=== PATIENT | male | born 1945 | race Caucasian/White ===

== ENCOUNTER 2016-09-03 02:01 | Inpatient (IN) | payer OTHER, MEDICAID ==
[~2016-09-03] VITALS: Ht 177.8 cm; Wt 81.2 kg
[2016-09-03] MEDS ORDERED: SODIUM CHLORIDE 0.9% 1,000 ML IV ONE (02:23)
[2016-09-03] MEDS ORDERED: ONDANSETRON HCL 4MG/2ML VIAL IV STA (02:23)
[2016-09-03] MEDS ORDERED: MORPHINE SULFATE 4 MG/ML CPJ (NOT FOR IM USE) IV STA (02:23)
[2016-09-03 02:42] LABS: HEMATOCRIT. 35.5 % (42.0-52.0); HEMOGLOBIN. 11.5 g/dL (14.0-18.0); MEAN CORPUSCULAR HEMOGLOBIN 29.4 pg (28.0-32.0); MEAN CORPUSCULAR HGB CONC 32.4 g/dL (31.0-37.0); MEAN CORPUSCULAR VOLUME 90.6 fL (80.0-94.0); MEAN PLATELET VOLUME 7.4 fl (7.4-10.4); PLATELET 351 x1000/uL (130-400); RED BLOOD CELL COUNT 3.91 mill/uL (4.7-6.1); RED CELL DISTRIBUTION WIDTH 16.4 % (11.6-14.6); WHITE BLOOD COUNT 17.4 x1000/uL (4.5-11.0)
[2016-09-03 02:43] LABS: DIFFERENTIAL COMMENT 1
[2016-09-03 02:49] LABS: CHLORIDE 103 mEq/L (98-107); INDEX HEMOLYSI 1 (1-3); INDEX ICTERIC 1 (1-4); INDEX LIPEMIC 1 (1-3)
[2016-09-03 02:50] LABS: INR 1.3; PARTIAL THROMBOPLASTIN TIME 35.7 sec (24.0-34.0); PROTHROMBIN TIME 13.1 sec
[2016-09-03 02:57] LABS: ALANINE AMINOTRANSFERASE 14 IU/L (13-61); ANION GAP 16; CALCIUM 8.6 mg/dL (8.5-10.1); CARBON DIOXIDE 24 mEq/L (21-32); UREA NITROGEN BLOOD 12 mg/dL (7-21); eGFR > 60 mL/min (>60)
[2016-09-03 03:51] LABS: LIPASE 10296 IU/L (73-393)
[2016-09-03 05:08] LABS: CLARITY URINE CLEAR (CLEAR); COLOR URINE YELLOW (YELLOW); GLUCOSE URINE NEGATIVE (NEGATIVE); KETONES URINE NEGATIVE (NEGATIVE); LEUKOCYTE ESTERASE URINE NEGATIVE (NEGATIVE); NITRITE URINE NEGATIVE (NEGATIVE); OCCULT BLOOD URINE NEGATIVE (NEGATIVE); PH URINE 6.5 (4.5-8.0); PROTEIN URINE NEGATIVE (NEGATIVE); SPECIFIC GRAVITY URINE 1.024 (1.005-1.030)
[2016-09-03] MEDS ORDERED: ENOXAPARIN 80MG/0.8ML SYR SUBCUT ONE (05:30)
[2016-09-03] MEDS ORDERED: IOHEXOL-300 100 ML BOTTLE ONE (06:00)
[2016-09-03] MEDS ORDERED: SODIUM CHLORIDE 0.9% 10ML VIAL ONE (06:00)
[2016-09-03 07:47] LABS: PLATELET ESTIMATE NORMAL
[2016-09-03 08:45] VITALS: BP 137/100
[2016-09-03 09:30] VITALS: BP 137/101
[2016-09-03] MEDS ORDERED: ATOR40TA70 PO (10:30)
[2016-09-03] MEDS ORDERED: GUAI480S11 PO (10:43)
[2016-09-03] MEDS ORDERED: IPRA0.2S51 NEB (10:43)
[2016-09-03] MEDS ORDERED: CYAN10009 PO (10:43)
[2016-09-03] MEDS ORDERED: ONDA4TAB5 PO (10:43)
[2016-09-03] MEDS ORDERED: SENN1TAB35 PO (10:43)
[2016-09-03] MEDS ORDERED: MULT-1146 PO (10:43)
[2016-09-03] MEDS ORDERED: RIVA20TA PO (10:43)
[2016-09-03] MEDS ORDERED: GABA300C PO (10:43)
[2016-09-03] MEDS ORDERED: LISI10TA5 PO (10:43)
[2016-09-03] MEDS ORDERED: POLY17PO3 PO (10:43)
[2016-09-03] MEDS ORDERED: PROT40 PO (10:43)
[2016-09-03] MEDS ORDERED: FOLI-43 PO (10:43)
[2016-09-03] MEDS ORDERED: LACT10SO6 PO (10:43)
[2016-09-03] MEDS ORDERED: DILT180C69 PO (10:43)
[2016-09-03] MEDS ORDERED: ACET-3161 PO (10:44)
[2016-09-03] MEDS ORDERED: ONDANSETRON HCL 4MG/2ML VIAL IV PRN ×2 (11:00→11:15)
[2016-09-03] MEDS: MORPHINE SULFATE 2 MG/ML CPJ (NOT FOR IM USE) IV PRN ×3 (11:07→21:24)
[2016-09-03] MEDS ORDERED: IPRATROPIUM/ALBUTEROL 0.5-3(2.5)MG/3ML NEB INH PRN (11:15)
[2016-09-03] MEDS ORDERED: ACETAMINOPHEN 325MG TABLET PO PRN (11:15)
[2016-09-03] MEDS ORDERED: CLONIDINE 0.1MG TABLET PO PRN (11:15)
[2016-09-03] MEDS ORDERED: DIPHENHYDRAMINE 50MG/ML VIAL IV PRN (11:15)
[2016-09-03 12:00] VITALS: BP 125/85
[2016-09-03] MEDS ORDERED: SENNOSIDES/DOCUSATE SOD 8.6/50MG TABLET PO PRN (12:45)
[2016-09-03] MEDS ORDERED: ONDANSETRON HCL 4MG TABLET PO PRN (12:45)
[2016-09-03] MEDS ORDERED: POLYETHYLENE GLYCOL 3350 (17GM) 1 DOSE PACK PO PRN (12:45)
[2016-09-03] MEDS ORDERED: ACETAMINOPHEN WITH CODEINE 300/30MG TABLET PO PRN (12:45)
[2016-09-03] MEDS ORDERED: IPRATROPIUM BROMIDE (0.02%) 0.5MG/2.5ML NEB HHN PRN (12:45)
[2016-09-03] MEDS: NICOTINE 7MG PATCH TD SCH ×2 (14:00→14:09)
[2016-09-03] MEDS ORDERED: DILTIAZEM HCL 180MG CAPSULE CD 24HR PO SCH (14:00)
[2016-09-03] MEDS: CYANOCOBALAMIN 1000MCG TABLET PO SCH (14:01)
[2016-09-03] MEDS: GABAPENTIN 300MG CAPSULE PO SCH ×2 (14:01→21:23)
[2016-09-03] MEDS: PANTOPRAZOLE SODIUM 40 MG/VIAL IV SCH (14:01)
[2016-09-03] MEDS: SODIUM CHLORIDE 0.9% 1,000 ML IV SCH (14:01)
[2016-09-03] MEDS: LISINOPRIL 10MG TABLET PO SCH (14:02)
[2016-09-03] MEDS: FOLIC ACID 1MG TABLET PO SCH (14:02)
[2016-09-03 16:00] VITALS: BP 122/92
[2016-09-03 16:47] LABS: *AMPHETAMINES SCREEN URINE NEGATIVE (NEGATIVE); *BARBITURATES SCREEN URINE NEGATIVE (NEGATIVE); *BENZODIAZEPINES SCREEN URINE NEGATIVE (NEGATIVE); *COCAINE SCREEN URINE NEGATIVE (NEGATIVE); CANNABINOID URINE SCREEN NEGATIVE (NEGATIVE); ECSTASY MDMA SCREEN URINE NEGATIVE (NEGATIVE); METHADONE URINE SCREEN NEGATIVE (NEGATIVE); OPIATES URINE SCREEN PRESUMTIVE POSITIVE (NEGATIVE); PHENCYCLIDINE URINE SCREEN NEGATIVE (NEGATIVE)
[2016-09-03] MEDS: RIVAROXABAN 20 MG TABLET PO SCH (17:08)
[2016-09-03] MEDS: LACTULOSE 20G/30ML UDC PO SCH (17:08)
[2016-09-03 20:00] VITALS: BP 131/91
[2016-09-03] MEDS: ATORVASTATIN CALCIUM 40MG TABLET PO SCH (21:23)
[2016-09-04] VITALS: BP 126/93
[2016-09-04] MEDS: GUAIFENESIN-DM 200MG-20MG/10ML UDC PO PRN ×2 (01:47→17:25)
[2016-09-04 04:00] VITALS: BP 137/95
[2016-09-04] MEDS: DILTIAZEM HCL 60MG TABLET PO SCH ×3 (06:19→21:07)
[2016-09-04] MEDS: GABAPENTIN 300MG CAPSULE PO SCH ×3 (06:19→21:06)
[2016-09-04] MEDS: SODIUM CHLORIDE 0.9% 1,000 ML IV SCH ×3 (06:20→21:08)
[2016-09-04 07:00] LABS: HEMATOCRIT. 38.9 % (42.0-52.0); HEMOGLOBIN. 12.8 g/dL (14.0-18.0); MEAN CORPUSCULAR HEMOGLOBIN 29.6 pg (28.0-32.0); MEAN CORPUSCULAR HGB CONC 32.9 g/dL (31.0-37.0); MEAN CORPUSCULAR VOLUME 90.1 fL (80.0-94.0); PLATELET 358 x1000/uL (130-400); RED BLOOD CELL COUNT 4.32 mill/uL (4.7-6.1); RED CELL DISTRIBUTION WIDTH 16.2 % (11.6-14.6); WHITE BLOOD COUNT 26.2 x1000/uL (4.5-11.0)
[2016-09-04 07:54] LABS: DIFFERENTIAL COMMENT 1
[2016-09-04 07:57] LABS: ALANINE AMINOTRANSFERASE 11 IU/L (13-61); ALBUMIN 2.6 g/dL (3.4-5.0); ANION GAP 13; CALCIUM 8.9 mg/dL (8.5-10.1); CARBON DIOXIDE 28 mEq/L (21-32); CHLORIDE 104 mEq/L (98-107); HDL CHOLESTEROL 69 mg/dL (40-59); INDEX HEMOLYSI 1 (1-3); INDEX ICTERIC 1 (1-4); INDEX LIPEMIC 1 (1-3); LDL CHOLESTEROL 33 mg/dL (5-100); MAGNESIUM 1.8 mg/dL (1.8-2.4); TRIGLYCERIDE 39 mg/dL (0-150); UREA NITROGEN BLOOD 9 mg/dL (7-21); eGFR > 60 mL/min (>60)
[2016-09-04 08:00] LABS: AMYLASE 787 IU/L (25-115); THYROID STIMULATING HORMONE 0.47 uIU/mL (0.36-3.74)
[2016-09-04 08:09] VITALS: BP 143/97
[2016-09-04 08:11] LABS: LIPASE 1670 IU/L (73-393)
[2016-09-04] MEDS: FOLIC ACID 1MG TABLET PO SCH (08:42)
[2016-09-04] MEDS: PANTOPRAZOLE SODIUM 40 MG/VIAL IV SCH (08:42)
[2016-09-04] MEDS: LACTULOSE 20G/30ML UDC PO SCH ×2 (08:42→16:54)
[2016-09-04] MEDS: LISINOPRIL 10MG TABLET PO SCH (08:42)
[2016-09-04] MEDS: MULTIVITAMINS,THER W-MINERALS TABLET PO SCH (08:42)
[2016-09-04] MEDS: CYANOCOBALAMIN 1000MCG TABLET PO SCH (08:45)
[2016-09-04] MEDS: NICOTINE 7MG PATCH TD SCH (08:46)
[2016-09-04] MEDS ORDERED: PANTOPRAZOLE 40MG DR TABLET PO SCH (09:00)
[2016-09-04] MEDS ORDERED: ENOXAPARIN 30MG/0.3ML SYR SUBCUT SCH (09:00)
[2016-09-04 11:54] VITALS: BP 140/107
[2016-09-04] MEDS: LEVOFLOXACIN 500MG PREMIX 100 ML IV SCH (12:47)
[2016-09-04] MEDS: HYDROCODONE/ACETAMINOPHEN 5/325MG TABLET PO PRN ×2 (13:57→21:09)
[2016-09-04 15:31] VITALS: BP 156/97
[2016-09-04 16:20] LABS: PLATELET ESTIMATE NORMAL
[2016-09-04] MEDS: RIVAROXABAN 20 MG TABLET PO SCH (16:55)
[2016-09-04 20:00] VITALS: BP 146/96
[2016-09-04] MEDS: ATORVASTATIN CALCIUM 40MG TABLET PO SCH (21:07)
[2016-09-05] VITALS: BP 131/86
[2016-09-05 04:00] VITALS: BP 141/93
[2016-09-05] MEDS: SODIUM CHLORIDE 0.9% 1,000 ML IV SCH ×3 (05:19→21:14)
[2016-09-05] MEDS: GABAPENTIN 300MG CAPSULE PO SCH ×3 (06:11→21:14)
[2016-09-05] MEDS: DILTIAZEM HCL 60MG TABLET PO SCH ×3 (06:11→21:14)
[2016-09-05 07:27] LABS: BASOPHILS % 0.1 % (0.0-2.0); EOSINOPHILS % 0.5 % (0.0-5.0); HEMATOCRIT. 33.8 % (42.0-52.0); LYMPHOCYTES % 7.1 % (20.0-50.0); MEAN CORPUSCULAR HEMOGLOBIN 29.3 pg (28.0-32.0); MEAN CORPUSCULAR HGB CONC 32.6 g/dL (31.0-37.0); MEAN CORPUSCULAR VOLUME 89.9 fL (80.0-94.0); MEAN PLATELET VOLUME 7.8 fl (7.4-10.4); MONOCYTES % 10.3 % (2.0-8.0); PLATELET 332 x1000/uL (130-400); RED BLOOD CELL COUNT 3.76 mill/uL (4.7-6.1); RED CELL DISTRIBUTION WIDTH 16.2 % (11.6-14.6); WHITE BLOOD COUNT 15.9 x1000/uL (4.5-11.0)
[2016-09-05 07:42] LABS: ANION GAP 12; CARBON DIOXIDE 27 mEq/L (21-32); CHLORIDE 103 mEq/L (98-107); INDEX HEMOLYSI 1 (1-3); INDEX ICTERIC 1 (1-4); INDEX LIPEMIC 1 (1-3); LIPASE 172 IU/L (73-393); UREA NITROGEN BLOOD 7 mg/dL (7-21); eGFR > 60 mL/min (>60)
[2016-09-05 08:00] VITALS: BP 129/76
[2016-09-05] MEDS: PANTOPRAZOLE SODIUM 40 MG/VIAL IV SCH (09:05)
[2016-09-05] MEDS: FOLIC ACID 1MG TABLET PO SCH (09:05)
[2016-09-05] MEDS: LACTULOSE 20G/30ML UDC PO SCH ×2 (09:05→17:06)
[2016-09-05] MEDS: NICOTINE 7MG PATCH TD SCH (09:06)
[2016-09-05] MEDS: CYANOCOBALAMIN 1000MCG TABLET PO SCH (09:06)
[2016-09-05] MEDS: MULTIVITAMINS,THER W-MINERALS TABLET PO SCH (09:06)
[2016-09-05] MEDS: LISINOPRIL 10MG TABLET PO SCH (09:06)
[2016-09-05] MEDS ORDERED: BISACODYL 10MG SUPP PR PRN (11:30)
[2016-09-05 12:00] VITALS: BP 122/78
[2016-09-05] MEDS: LEVOFLOXACIN 500MG PREMIX 100 ML IV SCH (12:08)
[2016-09-05 16:00] VITALS: BP 103/80
[2016-09-05] MEDS: RIVAROXABAN 20 MG TABLET PO SCH (17:06)
[2016-09-05] MEDS: DOCUSATE SODIUM 100MG CAPSULE PO SCH (17:06)
[2016-09-05] MEDS: LISINOPRIL 20MG TABLET PO SCH (17:07)
[2016-09-05] MEDS: HYDROCODONE/ACETAMINOPHEN 5/325MG TABLET PO PRN (19:09)
[2016-09-05 20:00] VITALS: BP 147/88
[2016-09-05] MEDS: ATORVASTATIN CALCIUM 40MG TABLET PO SCH (21:13)
[2016-09-06] VITALS: BP 137/88
[2016-09-06] MEDS: SODIUM CHLORIDE 0.9% 1,000 ML IV SCH ×2 (00:45→06:33)
[2016-09-06 04:00] VITALS: BP 135/86
[2016-09-06 05:57] LABS: BASOPHILS % 0.2 % (0.0-2.0); EOSINOPHILS % 0.7 % (0.0-5.0); HEMATOCRIT. 31.5 % (42.0-52.0); HEMOGLOBIN. 10.3 g/dL (14.0-18.0); LYMPHOCYTES % 7.8 % (20.0-50.0); MEAN CORPUSCULAR HEMOGLOBIN 29.3 pg (28.0-32.0); MEAN CORPUSCULAR HGB CONC 32.7 g/dL (31.0-37.0); MEAN CORPUSCULAR VOLUME 89.5 fL (80.0-94.0); MEAN PLATELET VOLUME 7.4 fl (7.4-10.4); MONOCYTES % 11.9 % (2.0-8.0); NEUTROPHILS % 79.4 % (40.0-76.0); PLATELET 333 x1000/uL (130-400); RED BLOOD CELL COUNT 3.52 mill/uL (4.7-6.1); RED CELL DISTRIBUTION WIDTH 15.5 % (11.6-14.6); WHITE BLOOD COUNT 13.1 x1000/uL (4.5-11.0)
[2016-09-06 06:26] LABS: CHLORIDE 100 mEq/L (98-107); INDEX HEMOLYSI 1 (1-3); INDEX ICTERIC 1 (1-4); INDEX LIPEMIC 1 (1-3)
[2016-09-06 06:33] LABS: ANION GAP 14; CALCIUM 7.8 mg/dL (8.5-10.1); CARBON DIOXIDE 25 mEq/L (21-32); MAGNESIUM 1.6 mg/dL (1.8-2.4); eGFR > 60 mL/min (>60)
[2016-09-06] MEDS: GABAPENTIN 300MG CAPSULE PO SCH (06:33)
[2016-09-06] MEDS: DILTIAZEM HCL 60MG TABLET PO SCH (06:33)
[2016-09-06 06:34] LABS: UREA NITROGEN BLOOD 4 mg/dL (7-21)
[2016-09-06] MEDS: LISINOPRIL 20MG TABLET PO SCH (06:34)
[2016-09-06 08:00] VITALS: BP 116/82
[2016-09-06] MEDS ORDERED: POTASSIUM CHLORIDE 20MEQ TABLET SR PO NR (08:00)
[2016-09-06] MEDS ORDERED: MAGNESIUM 2 G PREMIX 50 ML IV NR (09:00)
[2016-09-06] MEDS ORDERED: FAMOTIDINE 20MG/2ML VIAL IV SCH (09:00)
[2016-09-06] MEDS: DOCUSATE SODIUM 100MG CAPSULE PO SCH (09:31)
[2016-09-06] MEDS: LACTULOSE 20G/30ML UDC PO SCH (09:31)
[2016-09-06] MEDS: FOLIC ACID 1MG TABLET PO SCH (09:31)
[2016-09-06] MEDS: MULTIVITAMINS,THER W-MINERALS TABLET PO SCH (09:37)
[2016-09-06] MEDS: NICOTINE 7MG PATCH TD SCH (09:38)
[2016-09-06] MEDS: CYANOCOBALAMIN 1000MCG TABLET PO SCH (09:38)
[2016-09-06] MEDS ORDERED: POTASSIUM CHLORIDE 20MEQ TABLET SR PO ONE (11:45)
[2016-09-06] MEDS: LEVOFLOXACIN 500MG PREMIX 100 ML IV SCH (11:56)
[2016-09-06 12:00] VITALS: BP 115/81
[2016-09-06 15:31] VITALS: BP 115/81
[2016-09-06 16:00] VITALS: BP 106/74
== END 2016-09-06 15:45 | disposition home or self-care (01) | DRG 438 ==
LOC: ER 02:14 → 6WST 05:29
PROVIDERS: ADMIT Internal Medicine; ATTEND Internal Medicine
DX: K85.90 Acute pancreatitis without necrosis or infection, unspecified (principal); R65.11 Systemic inflammatory response syndrome (SIRS) of non-infectious origin with acute organ dysfunction; K56.60 Unspecified intestinal obstruction; J44.0 Chronic obstructive pulmonary disease with (acute) lower respiratory infection; E44.0 Moderate protein-calorie malnutrition; D64.9 Anemia, unspecified; E78.00 Pure hypercholesterolemia, unspecified; G89.29 Other chronic pain; M43.17 Spondylolisthesis, lumbosacral region; I48.0 Paroxysmal atrial fibrillation; E78.5 Hyperlipidemia, unspecified; F17.210 Nicotine dependence, cigarettes, uncomplicated; F32.9 Major depressive disorder, single episode, unspecified; F41.9 Anxiety disorder, unspecified; H93.19 Tinnitus, unspecified ear; I48.2 Chronic atrial fibrillation; I83.90 Asymptomatic varicose veins of unspecified lower extremity; K21.9 Gastro-esophageal reflux disease without esophagitis; K64.9 Unspecified hemorrhoids; Z96.641 Presence of right artificial hip joint; M54.30 Sciatica, unspecified side; N41.9 Inflammatory disease of prostate, unspecified; I10 Essential (primary) hypertension; R63.4 Abnormal weight loss; Z82.49 Family history of ischemic heart disease and other diseases of the circulatory system; Z98.1 Arthrodesis status; Z72.89 Other problems related to lifestyle; Z68.25 Body mass index [BMI] 25.0-25.9, adult
CPT/HCPCS: 36415; 74000; 74177; 80048; 80053; 80061; 80305; 81003; 82150; 83605; 83690; 83735; 84443; 84484; 85025; 85610; 85730; 87040; 87086; 93005; 93308; 93970; 96361; 96372; 96374; 96375; 99285; A4216; C9113; J1650; J1956; J2270; J2405; J3475; J3490; J7030; Q0162; Q9967